=== PATIENT | male | born 1950 | race Caucasian/White ===

== ENCOUNTER 2021-12-06 11:31 | Observation (INO) | payer MEDICARE ==
[~2021-12-06] VITALS: Ht 188 cm; Wt 106.4 kg
[2021-12-06] VITALS (11 sets, daily range): BP systolic 95–159; BP diastolic 42–84
--- NOTE | 2021-12-06 11:35 | NUR ---
PT TO ROOM WITH STEADY GAIT
[2021-12-06] MEDS ORDERED: BYSTOLIC5 MG PO (11:44)
[2021-12-06] MEDS ORDERED: PRALUENT75 MG SC (11:45)
[2021-12-06 12:14] LABS: HEMATOCRIT 46.4 % (39.0-50.0); HEMOGLOBIN 16.1 g/dl (14.0-18.0); IMMATURE GRANULOCYTES 0.3 % (0.0-5.0); MEAN CELL VOLUME 93.9 fL CALC (80.0-100.0); MEAN CORPUSCULAR HGB 32.6 pG CALC (26.0-32.0); MEAN CORPUSCULAR HGB CONC 34.7 g/dL CAL (32.0-36.0); NEUT# 5.82 thou/uL (1.82-7.42); RED BLOOD COUNT 4.94 mill/uL (4.70-6.10); RED CELL DISTRI WIDTH 12.6 % (11.5-15.5)
[2021-12-06 12:21] LABS: ALBUMIN 4.6 g/dL (3.2-5.0); ALKALINE PHOSPHATASE 69 u/l (38-126); ANION GAP 15 (6-22 (CALC)); BILIRUBIN, TOTAL 0.8 mg/dL (0.0-1.4); BUN 15 mg/dL (8-23); BUN/CREATININE RATIO 20 (12-20 (CALC)); CARBON DIOXIDE 20 mmol/l (22-30); CHLORIDE 107 mmol/l (95-108); CREATININE 0.7 mg/dL (0.7-1.3); GFR FOR AFR.AMER. > 60 ML/MIN (>=60 (CALC)); GFR OTHER RACES > 60 ML/MIN (>=60 (CALC)); POTASSIUM 4.5 mmol/l (3.5-5.1); SODIUM 137 mmol/l (137-146); TOTAL PROTEIN 8.4 g/dL (6.3-8.2)
[2021-12-06 12:22] LABS: SGOT/AST 42 u/l (19-48)
--- NOTE | 2021-12-06 12:30 | NUR ---
Reassessment of patient completed. No distress noted.
--- NOTE | 2021-12-06 13:30 | NUR ---
Reassessment of patient completed. No distress noted.
--- NOTE | 2021-12-06 13:44 | NUR ---
D/C instructions given with verbalization of understanding. Pt. discharged home in stable condition.
--- NOTE | 2021-12-06 15:10 | NUR ---
PT ADMITTED TO [id number]. REPORT GIVEN TO NURSE. PT WENT TO ROOM VIA WHEELCHAIR ON TELE. NAD
--- NOTE | 2021-12-06 15:10 | NUR ---
Reassessment of patient completed. No distress noted. IN ROOM WITH AWAITING BED FOR ADMISSION
--- NOTE | 2021-12-06 16:21 | NUR ---
71 YEAR OLD MALE RECEIVED IN MED SURGE THIS AFTERNOON FOR CHEST PAIN , PT CAME VIA WHEELCHAIR, ALERT ORIENTED, DENIES ANY PAIN OR DISCOMFORT , VSS , DENIES CHEST PAIN AT THIS TIME.
[2021-12-07 00:48] VITALS: BP 124/63
[2021-12-07 03:05] LABS: CHOLESTEROL HDL RATIO 4.2 (<4.4 (CALC)); MAGNESIUM 2.2 mg/dL (1.6-2.3)
[2021-12-07 04:04] VITALS: BP 111/46
[2021-12-07 06:50] VITALS: BP 125/58
[2021-12-07 11:21] VITALS: BP 112/69
== END 2021-12-07 13:17 | disposition home or self-care (01) ==
LOC: ED 11:31 → ED-I 13:30 → ED 14:15 → MS2 14:16
PROVIDERS: Emergency Medicine; ADMIT Internal Medicine; ATTEND Internal Medicine
DX: R07.89 Other chest pain (principal); I10 Essential (primary) hypertension; E78.00 Pure hypercholesterolemia, unspecified; F17.210 Nicotine dependence, cigarettes, uncomplicated; Z20.822 Contact with and (suspected) exposure to COVID-19
CPT/HCPCS: J1650